=== PATIENT | male | born 1995 | race Caucasian/White ===

== ENCOUNTER → 2020-11-28 | Outpatient (CLI) | payer SELFPAY ==
[~2020-11-28] MED LIST: MOTRIN800 MG PO
== END | disposition home or self-care (01) ==
LOC: COVID19 12:24
PROVIDERS: ATTEND Internal Medicine
DX: Z20.822 Contact with and (suspected) exposure to COVID-19 (principal)

== ENCOUNTER 2024-05-31 11:50 | Emergency (ER) | payer OTHER ==
[~2024-05-31] VITALS: Ht 177.8 cm; Wt 142.9 kg
[2024-05-31] MEDS ORDERED: ACETAMINOPHEN 325 MG TAB PO ONE (12:25)
== END 2024-05-31 14:43 | disposition home or self-care (01) ==
LOC: ED 11:50
DX: J06.9 Acute upper respiratory infection, unspecified (principal); Z20.822 Contact with and (suspected) exposure to COVID-19; J45.909 Unspecified asthma, uncomplicated